=== PATIENT | male | born 1955 | race African-American/Black ===

== ENCOUNTER 2019-04-21 09:43 | Day surgery (SDC) | payer OTHER ==
[2019-04-20 14:50] VITALS: BMI 26.8
[2019-04-21] MEDS ORDERED: Clindamycin/D5W 600 mg/50 ml Premix Bag ONE (10:06)
[2019-04-21 10:37] LABS: #Eosinphils 0.2 thou/uL (0.0-0.7); #Lymphocytes 1.9 thou/uL (1.20-3.40); #Monocytes 0.6 thou/uL (0.11-0.59); #Neutrophils 5.9 thou/uL (1.40-6.50); %Basophils 0.3 % (0.0-1.0); %Eosinophils 2.6 % (0.0-10.0); %Lymphocytes 21.9 % (21.0-51.0); %Monocytes 6.6 % (0.0-10.0); %Neutrophils 68.6 % (42.0-75.0); Hemoglobin 14.7 g/dL (14.0-18.0); Mean Corpuscular HGB CONC 32.6 g/dL (32.0-36.0); Mean Corpuscular Hemoglobin 30.2 pg (27.0-31.0); Mean Corpuscular Volume 92.5 fL (78.0-98.0); Mean Platelet Volume 8.2 fL (7.4-10.4); Platelet Count 218 thou/uL (130-400); RBC Distribution Width 10.3 % (11.5-14.5); Red Blood Cell (RBC) Count 4.86 mill/uL (4.70-6.10); White Blood Cell (WBC) Count 8.6 thou/uL (4.8-10.8)
[2019-04-21] MEDS ORDERED: Ketorolac Tromethamine 30 MG/ML VIAL ONE (10:58)
[2019-04-21] MEDS ORDERED: Ondansetron PF 4 MG/2 ML Vial ONE (10:58)
[2019-04-21] MEDS ORDERED: Dexamethasone 20 MG/5 ML VIAL ONE (10:58)
[2019-04-21] MEDS ORDERED: Lidocaine 1% PF 5 ML VIAL ONE (10:58)
[2019-04-21] MEDS ORDERED: EPHEDRINE 25 MG/5 ML SYRINGE ONE (10:58)
[2019-04-21] MEDS ORDERED: PROPOFOL 200 MG/20 ML VIAL ONE (10:58)
[2019-04-21 11:00] LABS: Anion Gap 12 mmol/L (10-20); BUN (Urea Nitrogen) 13 mg/dL (8.4-25.7); Calc. Creatinine Clearance 74 mL/min (70-130); Calcium 9.6 mg/dL (7.8-10.44); Carbon Dioxide 27 mmol/L (23-31); Chloride 105 mmol/L (98-107); Estimated GFR-MDRD 66; Glucose 96 mg/dL (80-115); Potassium 4.1 mmol/L (3.5-5.1); Sodium 140 mmol/L (136-145)
[2019-04-21] MEDS ORDERED: Lidocaine 1% (PF) 30 ML VIAL ONE (11:00)
[2019-04-21] MEDS ORDERED: Fentanyl 100 MCG/2 ML VIAL ONE ×2 (11:58→12:37)
--- NOTE | 2019-04-21 15:32 | RAD ---
LEFT ELBOW 2 FLUOROSCOPIC VIEWS FROM OR: INDICATION: Intraoperative imaging during left biceps tendon repair. FINDINGS: Images of left elbow in AP and lateral view. Small metallic plate along the proximal ulnar cortex in dicates tendon repair procedure. POS: C
--- NOTE | 2019-04-24 11:31 | OP ---
DATE OF PROCEDURE: 04/21/2019 PREOPERATIVE DIAGNOSIS: Left distal biceps rupture. POSTOPERATIVE DIAGNOSIS: Left distal biceps rupture. PROCEDURE PERFORMED: Left distal biceps repair. CRIMINAL RESEARCH SPECIALIST: Wyatt Freeman PA-C. ANESTHESIA: The patient received an LMA, received 7 mL of 1% plain lidocaine. ESTIMATED BLOOD LOSS: Less than 10 mL. TOURNIQUET TIME: 55 minutes at 200 mmHg. IMPLANTS: Arthrex Tightrope distal biceps repair system. COMPLICATIONS: None. 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 He was lifting a jericho and felt in his elbow a pop and pain. MRI results showed a distal biceps rupture. I discussed the risks and benefits of distal biceps repair to include pain, scar, bleeding, infection, damage to vital structures, decreased range of motion and strength, continued pain despite surgical intervention, re-rupture , fracture, loss of life or limb. The patient understood the risks and benefits and elected to proceed. DESCRIPTION OF PROCEDURE: Time-out was performed designating the patient's left upper extremity as the operative site based on site, consents, and marking. After time-out, the patient's left upper extremity was prepped and draped in sterile fashion. Tourniquet was brought up and it was left for 55 minutes. An incision was made down on the ulnar aspect of the patient's brachioradialis, came down through skin. Blunt dissected, found the patient's lateral antebrachial cutaneous nerve as well as cephalic and basilic cubital veins, which were retracted and I dissected down in between the muscle planes bluntly, followed down the lacertus, which tracked to the patient's biceps tuberosity, I came back on the leash of Naveed, which I cauterized to help with exposure of the tuberosity. After exposing tuberosity and feeling comfortable with its position and placement, we moved proximally. We had to get in and dig into what was a portion of the scarred in lacertus and find the biceps. It looked more chronic in nature as opposed to an acute tear. This might have been an acute on chronic in nature injury that had retracted. After we were able to find this scarred in sheath biceps, we pulled it out to length. We were able to get it to the tuberosity in about 30 degrees of flexion. We went back, placed our Rhonda's. We cleaned off with a [place] and placed Hohmann around the patient 's tuberosity, gently retracting and finding the tuberosity under fluoroscopic guidance, we placed a drill pin bicortically and being happy with position, we drilled unicortically with 7.5. We then had run with fiber loop, a total of five passes. We then cleaned and trialed about a 7.5 mm drill hole, which we drilled. In this, we placed the patient's Tightrope, passing sutures in opposite positions, placed it through the 2nd hole, flipped it and pulled the biceps in place. We tracked it and looked in AP and lateral radiographs to ensure there was good position. We then pulled it in place, passed our suture through the biceps tendon and sewed it into place, washed. We closed subcu with 2-0 and skin with 3-0 nylon. I injected 7 mL of lidocaine plain. The patient was placed in a bulky dressing, begin elbow range of motion. I will see him back in clinic in 12 to 14 days. No active lifting for 3 months. Job ID: [id number] [facility]
== END 2019-04-21 15:30 | disposition home or self-care (01) ==
LOC: SDC 09:43
PROVIDERS: ATTEND Orthopaedic Surgery
PROC: 0LM40ZZ Reattachment of Left Upper Arm Tendon, Open Approach (ICD-10-PCS; principal; 2019-04-21)
DX: S46.212A Strain of muscle, fascia and tendon of other parts of biceps, left arm, initial encounter (principal); I10 Essential (primary) hypertension; E78.5 Hyperlipidemia, unspecified; X50.0XXA Overexertion from strenuous movement or load, initial encounter; Z79.899 Other long term (current) drug therapy; Z88.0 Allergy status to penicillin
CPT/HCPCS: 36415; 76000; 80048; 85025; 93005; 93010; C1713; J1100; J1885; J2001; J2405; J2704; J3010; J3490